=== PATIENT | female | born 1950 | race Caucasian/White ===

== ENCOUNTER 2021-03-21 21:50 | Inpatient (IN) | payer MEDICARE ==
[~2021-03-21] VITALS: Ht 162.6 cm; Wt 58.5 kg
--- NOTE | 2021-03-21 22:06 | NUR ---
Patient brought in by for medical clearance from [facility]. Patient was in the hospital there for visual hallucinations, seeng cats that were not present. Upon arrival here, she denies any auditory or visual haluccinations, denies SI/HI at this time. Placed patient in [facility], at bedside.
[2021-03-21] MEDS ORDERED: MELO15TA13 PO (22:23)
[2021-03-21] MEDS ORDERED: ATOR10TA PO (22:23)
[2021-03-21] MEDS ORDERED: TAMO20TA4 PO (22:24)
[2021-03-21] MEDS ORDERED: TRAM50TA2 PO (22:24)
[2021-03-21] MEDS ORDERED: MELA3TAB41 PO (22:24)
[2021-03-21] MEDS ORDERED: DULO60CA45 PO (22:24)
[2021-03-21] MEDS ORDERED: ACET-2154 PO (22:24)
[2021-03-21] MEDS ORDERED: TRAZ-182 PO (22:24)
[2021-03-21] MEDS ORDERED: OMEP20TA5 PO (22:24)
[2021-03-21] MEDS ORDERED: BUPR-53 PO (22:24)
[2021-03-21] MEDS ORDERED: CYCL5TAB PO (22:24)
[2021-03-21] MEDS ORDERED: SENN-18 PO (22:24)
[2021-03-21] MEDS ORDERED: DOCU100C36 PO (22:24)
[2021-03-21] MEDS ORDERED: ARIP5TAB10 PO (22:24)
[2021-03-21] MEDS ORDERED: ALPR0.5T8 PO (22:24)
--- NOTE | 2021-03-21 22:25 | NUR ---
Left message for Stormy crisis lock tender to evaluate patient.
--- NOTE | 2021-03-21 22:26 | NUR ---
Bed assignment 139B in U.
--- NOTE | 2021-03-21 22:28 | NUR ---
Stormy called back, eta 1 hour.
--- NOTE | 2021-03-22 00:55 | NUR ---
Pt. admitted to MHU , under care of Dr. Dorantes Belongs List completed. Report given to KAYLIN Zhang
[2021-03-22 02:23] VITALS: BP 143/50
--- NOTE | 2021-03-22 02:30 | NUR ---
ADMISSION NOTE GPS: ADMITTED EARLIER 70 YERS OLD CACATION FEMALE TO [facility] ON A 5150 FOR DTS AND GD. PER MEDICAL RECORDS, PATIENT WAS TAKEN BY FAMILY TO [facility] ON THE NIGHT OF 03/17/21 D/T PATIENT SON'S REPORTING PATIENT'S IS HAVING DIFFICULTY SLEEPING, SHE BARRICADED IN HER CLOSET AND HAVING VISUAL HALLUCINATIONS, AND WONDERING OUT OF THE HOUSE WHERE SHE WAS FOUND 7HRS LATER A FEW MILES AWAY FORM HOME. PATIENT HAS A HISTORY OF ANXIETY AND DEPRESSION. PATIENT WAS DISCHARGED FORM [facility] AND WAS BIB TO [facility] FOR ADMISSION TO MHU. PER HOLD, PATIENT'S DAUGHTER REPORTED THAT PATIENT HAS BEEN TAKING THE WRONG MEDICATION'S DOSE AND DECOMPENSATING FOR LAST 3-4 MONTHS. PER HOLD, PATIENT IS HAVING DIFFICULTY ARTICULATING HER WORDS AND CAN NOT FINISH A SENTENCE. UPON ADMISSION TO THE UNIT, PATIENT WAS NOTED A/O X 3 ABLE TO AMBULATED WITH STEADY GAIT AND COOPERATIVE WITH ADMISSION PROCESS. UPON FACE TO FACE ASSESSMENT, PATIENT REFLECTS WHAT IS WRITTEN ON THE HOLD. SHE DENIED SI, BUT STATES THAT SHE SEES PEOPLE WHO ARE NOT REAL. PATIENT WAS GIVEN HER ADVISEMENT WELL HER BOOKLET FOR PATIENT RIGHTS WHO ARE ADMITTED TO MENTAL HEALTH FACILITIES. SHE WAS OFFERED PO FLUIDS, AND SNACKS. A SHOWER WAS PROVIDED. PATIENT WAS ADVISED OF UNIT RULES, ROOM AND ROOMMATE. HER BELONGINGS WERE INVENTORIED AND SECURED IN A LOCKED CLOSET. PATIENT IS UNDER THE CARE OF DR. JUSTICE AND KAROLINA SUTTON. WILL CONTINUE TO MONITOR. WILL CONTINUE TO MONITOR Q15 MIN CHECKS.
[2021-03-22] MEDS ORDERED: TEMAZEPAM 7.5 MG CAPSULE PO PRN (02:45)
[2021-03-22] MEDS ORDERED: MAG HYDROX/AL HYDROX/SIMETH 30 ML LIQUID UDC PO PRN (02:45)
[2021-03-22] MEDS ORDERED: MAGNESIUM HYDROXIDE 30 ML LIQUID UDC PO PRN (02:45)
[2021-03-22] MEDS ORDERED: LORAZEPAM 0.5 MG TABLET PO PRN (02:45)
[2021-03-22 07:30] VITALS: BP 120/73
[2021-03-22] MEDS: NICOTINE 7 MG/24HR PATCH TD SCH (09:27)
--- NOTE | 2021-03-22 11:31 | NUR ---
SW Family Contact: SW spoke with patient's Baljeet ([phone]) and patient's daughter, Trudi ([phone]) and discussed treatment and discharge plan.
--- NOTE | 2021-03-22 11:31 | NUR ---
EPHRAIM Initial Discharge Plan: Patient resides at home [address] [place] [address] ([phone]) with Baljeet ([phone]). Patient's daughter, Trudi ([phone]) is also involved in the patient's care. Patient would like to return home upon discharge. EPHRAIM will continue to work with patient, family, and MD to ensure a safe and proper discharge plan.
--- NOTE | 2021-03-22 11:38 | NUR ---
Firearms Report: Supervisor Quilting completed and submitted a [employer] firearms report for 5150 danger to self and grave disability certifications. A copy of report has been placed in patient chart.
--- NOTE | 2021-03-22 11:42 | NUR ---
Brief Substance Abuse Intervention: Patient was provided with a brief substance abuse intervention for cigarettes abuse and referred to [facility] ([phone]) [facility] ([phone]) [place] Suicide Prevention Lifeline (624-376-5872) [facility] (487-420-0515) [facility] (087-728-4800) [facility] National Helpline (192-193-7774).
[2021-03-22 17:03] VITALS: BP 135/60
--- NOTE | 2021-03-22 17:36 | NUR ---
called and spoke with Dr. Dorantes , with new orders made , verified orders , CYMBALTA 60MG 1 TAB QAM, TRAZODONE 50MG QHS, SEROQUEL 100MG QHS, WELLBUTRIN XL 150MG QAM, ORDERMADE AND CARRIED OUT, patient signed consent, and aware of the new medication
--- NOTE | 2021-03-22 18:48 | NUR ---
patient calm cooperative , patient minimizes symptoms , compliant with medication
[2021-03-22 20:07] VITALS: BP 157/66
[2021-03-22] MEDS: QUETIAPINE FUMARATE 100 MG TABLET PO SCH (21:08)
[2021-03-22] MEDS: TRAZODONE 50 MG TABLET PO SCH (21:08)
--- NOTE | 2021-03-23 06:37 | NUR ---
PATIENT SLEPT FOR APPROX. 7HRS THROUGH THE NIGHT. SHE IS VERBALIZED FEELING, ABLE TO ARTICULATE THOUGHTS. SHE IS NOTED GOAL ORIENTED, CALM AND PLEASANT UPON APPROACHED, ABLE TO COMPLY WITH MEDICATION REGIMENT DIET AND PLAN OF CARE. DENIES SI. ABLE TO VERBALLY CFS. WILL CONTINUE TO MONITOR.
[2021-03-23 07:30] VITALS: BP 119/49
[2021-03-23] MEDS: buPROPion XL 150 MG TAB.SR.24H PO SCH (09:02)
[2021-03-23] MEDS: DULOXETINE 60 MG CAPSULE.DR PO SCH (09:02)
[2021-03-23] MEDS: NICOTINE 7 MG/24HR PATCH TD SCH (09:03)
[2021-03-23] MEDS ORDERED: TRAMADOL HCL 50 MG TABLET PO PRN (10:30)
[2021-03-23] MEDS ORDERED: CYCLOBENZAPRINE HCL 10 MG TABLET PO PRN (10:30)
[2021-03-23] MEDS ORDERED: SENNOSIDES 1 TABLET PO PRN (10:30)
[2021-03-23] MEDS: DOCUSATE SODIUM 100 MG CAPSULE PO SCH (16:03)
[2021-03-23 16:56] VITALS: BP 129/51
--- NOTE | 2021-03-23 18:08 | NUR ---
patient been calm cooperative, minimizes her symptoms, seen walking in the hallway, joined the group therapy, patient was monitored q15, patient denies SI and HI, no sign of distress
[2021-03-23 20:00] VITALS: BP 138/67
[2021-03-23] MEDS: ATORVASTATIN 10 MG TABLET PO SCH (20:18)
[2021-03-23] MEDS: TRAZODONE 50 MG TABLET PO SCH (20:18)
[2021-03-23] MEDS: QUETIAPINE FUMARATE 100 MG TABLET PO SCH (20:18)
--- NOTE | 2021-03-24 05:48 | NUR ---
GPS: Remain calm and cooperative with meds and care. slept 5.30 hrs through the night. no agitation noted at this time. patient occ pacing in the hallway. continue plan of care.
[2021-03-24] MEDS: PANTOPRAZOLE SODIUM 40 MG TABLET.DR PO SCH (06:01)
[2021-03-24 07:30] VITALS: BP 116/61
[2021-03-24 07:41] LABS: BASOPHILS # (AUTO) 0.1 K/uL (0.0-8.0); BASOPHILS % (AUTO) 2.2 % (0.0-2.0); EOSINOPHILS # (AUTO) 0.5 K/uL (0.0-0.7); EOSINOPHILS % (AUTO) 8.6 % (0.0-7.0); HEMATOCRIT 37.6 % (31.2-41.9); HEMOGLOBIN 12.7 g/dL (10.9-14.3); LYMPHOCYTES # (AUTO) 1.9 K/uL (20.0-40.0); LYMPHOCYTES % (AUTO) 32.6 % (20.5-51.5); MEAN CORPUSCULAR HEMOGLOBIN 35.8 uug (24.7-32.8); MEAN CORPUSCULAR HGB CONC 34 g/dL (32.3-35.6); MEAN CORPUSCULAR VOLUME 106.4 fL (75.5-95.3); MONOCYTES # (AUTO) 0.5 K/uL (2.0-10.0); MONOCYTES % (AUTO) 8.1 % (0.0-11.0); NEUTROPHILS # (AUTO) 2.8 K/uL (1.8-8.9); NEUTROPHILS % (AUTO) 48.5 % (38.5-71.5); PLATELET COUNT (AUTO) 275 K/uL (179-408); RED BLOOD CELL COUNT(AUTO) 3.53 MIL/uL (3.63-4.92); WHITE BLOOD COUNT (AUTO) 5.7 K/uL (3.8-11.8)
[2021-03-24 07:43] LABS: CREATININE 0.9 mg/dL (0.6-1.3); MAGNESIUM 2.3 mg/dL (1.8-2.4); PHOSPHOROUS 5.1 mg/dL (2.5-4.9); POTASSIUM 4.7 mmol/L (3.5-5.1)
[2021-03-24 08:01] LABS: THYROID STIMULATING HORMONE 0.87 mIU/mL (0.358-3.740)
[2021-03-24] MEDS: DULOXETINE 60 MG CAPSULE.DR PO SCH (08:09)
[2021-03-24] MEDS: MELOXICAM 7.5 MG TABLET PO SCH (08:09)
[2021-03-24] MEDS: DOCUSATE SODIUM 100 MG CAPSULE PO SCH ×2 (08:09→16:09)
[2021-03-24] MEDS: buPROPion XL 150 MG TAB.SR.24H PO SCH (08:09)
[2021-03-24] MEDS: NICOTINE 7 MG/24HR PATCH TD SCH (08:35)
[2021-03-24] MEDS ORDERED: TAMOXIFEN CITRATE 20 MG PO SCH (09:00)
--- NOTE | 2021-03-24 11:34 | NUR ---
tried calling patients Baljeet [phone], regarding the patients medication tamoxifen, hisband did not picking machine operator the phone and voicemail was not set up, will continue to try to call and follow up regarding patient tamoxifen
[2021-03-24 15:36] VITALS: BP 127/71
--- NOTE | 2021-03-24 18:14 | NUR ---
received patient AOx3-4, calm cooperative, compliant, minimizes her symptoms, sen by Dr. Portillo today , with 5250 hold was advised, patient accepted the new hold, no sign of any anxiety at this time, patient was monitored for safety q15 minutes
[2021-03-24 20:00] VITALS: BP 113/50
[2021-03-24] MEDS: TRAZODONE 50 MG TABLET PO SCH (20:04)
[2021-03-24] MEDS: QUETIAPINE FUMARATE 100 MG TABLET PO SCH (20:04)
[2021-03-24] MEDS: ATORVASTATIN 10 MG TABLET PO SCH (20:04)
--- NOTE | 2021-03-25 05:58 | NUR ---
GPS: Remain calm and cooperative with meds and care. slept 6.30 hrs through the night. no agitation noted at this time. Resting in bed comfortably. continue plan of care.
[2021-03-25] MEDS: PANTOPRAZOLE SODIUM 40 MG TABLET.DR PO SCH (06:13)
[2021-03-25 07:30] VITALS: BP 143/53
[2021-03-25] MEDS: DOCUSATE SODIUM 100 MG CAPSULE PO SCH ×2 (08:11→16:36)
[2021-03-25] MEDS: NICOTINE 7 MG/24HR PATCH TD SCH ×2 (08:11→08:19)
[2021-03-25] MEDS: buPROPion XL 150 MG TAB.SR.24H PO SCH (08:12)
[2021-03-25] MEDS: DULOXETINE 60 MG CAPSULE.DR PO SCH (08:13)
[2021-03-25] MEDS: MELOXICAM 7.5 MG TABLET PO SCH (08:13)
[2021-03-25 15:19] VITALS: BP 143/73
[2021-03-25] MEDS: ACETAMINOPHEN 325 MG TABLET PO PRN (16:36)
--- NOTE | 2021-03-25 16:49 | NUR ---
patient remains calm and cooperative, denies suicidal thoughts, no distress noted. compliant with medications, no aggressive or combative behavior noted this shift. continue to monitor per GPS protocols
[2021-03-25 20:04] VITALS: BP 142/71
[2021-03-25] MEDS: ATORVASTATIN 10 MG TABLET PO SCH (20:17)
[2021-03-25] MEDS: TRAZODONE 50 MG TABLET PO SCH (20:17)
[2021-03-25] MEDS: QUETIAPINE FUMARATE 100 MG TABLET PO SCH (20:17)
[2021-03-26] MEDS: PANTOPRAZOLE SODIUM 40 MG TABLET.DR PO SCH (06:04)
[2021-03-26 07:30] VITALS: BP 120/61
[2021-03-26] MEDS: NICOTINE 7 MG/24HR PATCH TD SCH (09:00)
[2021-03-26] MEDS: MELOXICAM 7.5 MG TABLET PO SCH (09:33)
[2021-03-26] MEDS: DULOXETINE 60 MG CAPSULE.DR PO SCH (09:33)
[2021-03-26] MEDS: buPROPion XL 150 MG TAB.SR.24H PO SCH (09:33)
[2021-03-26] MEDS: DOCUSATE SODIUM 100 MG CAPSULE PO SCH ×2 (09:33→17:00)
--- NOTE | 2021-03-26 12:23 | NUR ---
EPHRAIM Family Contact: SW spoke with patient's daughter, Trudi ([phone]) and discussed updated treatment plan including medications.
[2021-03-26 15:48] VITALS: BP 137/70
[2021-03-26 20:13] VITALS: BP 144/68
[2021-03-26] MEDS: TRAZODONE 50 MG TABLET PO SCH (20:46)
[2021-03-26] MEDS: QUETIAPINE FUMARATE 100 MG TABLET PO SCH (20:46)
[2021-03-26] MEDS: ATORVASTATIN 10 MG TABLET PO SCH (20:46)
--- NOTE | 2021-03-27 02:15 | NUR ---
RECEIVED PATIENT IN ACTIVITY ROOM. CALM AND PLEASANT UPON APPROACHED. ABLE TO MAKE NEEDS KNOWN. COMPLIANT WITH MEDICATION AND CARE. DENIES SI. NO BEHAVIORAL ISSUES NOTED.VISUAL CHECKS MADE ON HER FOR SAFETY.WILL CONTINUE TO MONITOR.
[2021-03-27] MEDS: PANTOPRAZOLE SODIUM 40 MG TABLET.DR PO SCH (06:37)
--- NOTE | 2021-03-27 06:52 | NUR ---
SLEPT FOR 6:00 HOURS.
[2021-03-27 07:30] VITALS: BP 153/82
[2021-03-27] MEDS: NICOTINE 7 MG/24HR PATCH TD SCH (09:00)
[2021-03-27] MEDS: buPROPion XL 150 MG TAB.SR.24H PO SCH (09:02)
[2021-03-27] MEDS: TAMOXIFEN CITRATE 10 MG TABLET PO SCH (09:02)
[2021-03-27] MEDS: DULOXETINE 60 MG CAPSULE.DR PO SCH (09:03)
[2021-03-27] MEDS: MELOXICAM 7.5 MG TABLET PO SCH (09:03)
[2021-03-27] MEDS: DOCUSATE SODIUM 100 MG CAPSULE PO SCH ×2 (09:03→16:58)
--- NOTE | 2021-03-27 09:58 | NUR ---
EPHRAIM PC Hearing: Patient had 5250 probable cause hearing today and it was upheld for grave disability.
--- NOTE | 2021-03-27 13:37 | NUR ---
EPHRAIM Coordination of Care: EPHRAIM spoke with patient's daughter, Trudi ([phone]) regarding aftercare appointments for psychiatrist and primary physician. Patient sees a psychiatrist at [facility] [address], [address] ([phone]). Trudi stated that she will follow up with aftercare appointments and make them herself for the patient. Trudi stated she takes the patient to her doctor's appointments. Trudi stated they are in the process of changing the patient's psychiatrist and she will be following up with that.
[2021-03-27 15:46] VITALS: BP 136/75
[2021-03-27] MEDS: ACETAMINOPHEN 325 MG TABLET PO PRN (16:58)
[2021-03-27 20:13] VITALS: BP 136/75
[2021-03-27] MEDS: ATORVASTATIN 10 MG TABLET PO SCH (20:26)
[2021-03-27] MEDS: TRAZODONE 50 MG TABLET PO SCH (20:26)
[2021-03-27] MEDS: QUETIAPINE FUMARATE 100 MG TABLET PO SCH (20:26)
[2021-03-28] MEDS: PANTOPRAZOLE SODIUM 40 MG TABLET.DR PO SCH (06:02)
--- NOTE | 2021-03-28 06:27 | NUR ---
GPS: Pt.slept for 6.15 last night. Med.compliant. and allows care from staff. Safe environment provided. Will continue to monitor.
[2021-03-28 07:30] VITALS: BP 162/57
--- NOTE | 2021-03-28 07:30 | NUR ---
Received report from ROSCOE Garcia. All questions, comments, and concerns were addressed. Received patient awake, sitting in her assigned room. Bed is in low and locked position.
[2021-03-28] MEDS: DOCUSATE SODIUM 100 MG CAPSULE PO SCH ×2 (08:09→16:33)
[2021-03-28] MEDS: NICOTINE 7 MG/24HR PATCH TD SCH ×2 (08:09→08:15)
[2021-03-28] MEDS: TAMOXIFEN CITRATE 10 MG TABLET PO SCH (08:10)
[2021-03-28] MEDS: buPROPion XL 150 MG TAB.SR.24H PO SCH (08:10)
[2021-03-28] MEDS: MELOXICAM 7.5 MG TABLET PO SCH (08:10)
[2021-03-28] MEDS: DULOXETINE 60 MG CAPSULE.DR PO SCH (08:11)
[2021-03-28 10:28] VITALS: BP 144/57
[2021-03-28 16:00] VITALS: BP 146/70
--- NOTE | 2021-03-28 18:30 | NUR ---
patient is alert and oriented. patient is calm, cooperative, and pleasant. patient is adherent with medication, no adverse reaction noted. patient denies SI/HI, denies AH/VH. patient has appropriate interaction with peers and staff. encouraged to participate in the unit groups and therapeutic milieu.
[2021-03-28] MEDS: ATORVASTATIN 10 MG TABLET PO SCH (20:06)
[2021-03-28] MEDS: TRAZODONE 50 MG TABLET PO SCH (20:06)
[2021-03-28] MEDS: QUETIAPINE FUMARATE 100 MG TABLET PO SCH (20:06)
[2021-03-28 20:10] VITALS: BP 137/71
[2021-03-29] MEDS: PANTOPRAZOLE SODIUM 40 MG TABLET.DR PO SCH (06:03)
[2021-03-29 07:30] VITALS: BP 130/71
--- NOTE | 2021-03-29 07:57 | NUR ---
SW Discharge Note: Patient will be discharged today home [address] [place] [address]. Patients Baljeet ([phone]) and daughter Trudi ([phone]) are involved in the patients care and will be picking up the patient today at 11AM. Patient is alert and oriented x3 and is aware and agreeable with discharge plan. Patient denies suicidal or homicidal ideation. Patient presents with euthymic mood and congruent affect. Patient will be following up with her psychiatrist at [facility] [address], [address] ([phone]). Spoke with patients daughter, Trudi ([phone]) who stated she will follow up for aftercare appointments. Patient was provided with a brief substance abuse intervention for cigarettes abuse and referred to [facility] ([phone]) [facility] (250-459-6117) National Suicide Prevention Lifeline (933-903-1840) [facility] (518-293-8836) [facility] ([phone]) [facility] National Helpline (810-233-3837).
[2021-03-29] MEDS: DOCUSATE SODIUM 100 MG CAPSULE PO SCH (08:32)
[2021-03-29] MEDS: DULOXETINE 60 MG CAPSULE.DR PO SCH (08:32)
[2021-03-29] MEDS: buPROPion XL 150 MG TAB.SR.24H PO SCH (08:32)
[2021-03-29] MEDS: TAMOXIFEN CITRATE 10 MG TABLET PO SCH (08:40)
[2021-03-29] MEDS: NICOTINE 7 MG/24HR PATCH TD SCH (08:45)
[2021-03-29] MEDS: MELOXICAM 7.5 MG TABLET PO SCH (08:45)
[2021-03-29] MEDS: ACETAMINOPHEN 325 MG TABLET PO PRN (09:41)
--- NOTE | 2021-03-29 10:00 | NUR ---
Gps/Crime Scene Photographer- in to apple picker patient, and to provide transportation to [place]. Reviewed discharged instructions, safety reviewed, emphasized. verbalized understanding Needed to follow up with her primary Medical Doctor . Psychiatrist as recommended . All belongings given back patient No complaints noted , looking forward to her discharge per patient. Denies S.I , no H.I.
--- NOTE | 2021-03-29 10:35 | NUR ---
Gps/Manager Unit- Discharged to home via private car accompanied by her , patient in good spirit, no complaints noted, all belongings given back to patient, no complaints noted.
== END 2021-03-29 10:35 | disposition home or self-care (01) | DRG 881 ==
LOC: ER 21:54 → GPS 03-22 01:08
PROVIDERS: ADMIT Psychiatry & Neurology Psychiatry; ATTEND Student in an Organized Health Care Education/Training Program
DX: F32.9 Major depressive disorder, single episode, unspecified (principal); G31.84 Mild cognitive impairment of uncertain or unknown etiology; G43.909 Migraine, unspecified, not intractable, without status migrainosus; F41.0 Panic disorder [episodic paroxysmal anxiety]; G89.29 Other chronic pain; Z85.3 Personal history of malignant neoplasm of breast; Z92.3 Personal history of irradiation; Z96.659 Presence of unspecified artificial knee joint; F41.9 Anxiety disorder, unspecified; Z73.6 Limitation of activities due to disability; J45.909 Unspecified asthma, uncomplicated; E78.5 Hyperlipidemia, unspecified; K21.9 Gastro-esophageal reflux disease without esophagitis
CPT/HCPCS: 36415; 83735; 84100; 84443; 85025; A4663; A9150; J8999